=== PATIENT | male | born 1980 | race Caucasian/White ===

== ENCOUNTER 2019-08-09 22:26 | Emergency (ER) | payer SELFPAY ==
[2019-08-09] MEDS ORDERED: ACETAMINOPHEN 325 MG TABLET PO ONE (22:58)
[2019-08-09] MEDS ORDERED: HYDROMORPHONE HCL INJ/PF 2 MG/ML AMPULE IV ONE (23:14)
[2019-08-09] MEDS ORDERED: ONDANSETRON HCL INJ/PF 4 MG/2 ML SDV IV ONE (23:14)
--- NOTE | 2019-08-09 23:18 | ER Document Report ---
ED GI/ - General TRAVEL OUTSIDE OF THE [place] IN LAST 30 DAYS: No - General Chief Complaint: Penile Problem Stated Complaint: GROIN INJURY Time Seen by Provider: 08/09/19 23:08 Notes: Patient is a 38-year-old male that comes to the emergency department for chief complaint of injury to the penis. He states he was having sexual intercourse when suddenly the erect penis bent to the left in almost a 90 degree angle causing severe pain, he states he felt a pop, he states afterwards he immediately tried to compress his genitals between his legs. He states pain started increasing and he check and noticed he started bleeding from the tip of the penis for a period of time. He was able to urinate later with blood mixed in the urine. He reports swelling and pain over the right side of the shaft of the penis currently. He denies any other injuries. He denies any daily medications, surgeries, or past medical history. (YOLI YOUNG) - Related Data Allergies/Adverse Reactions: No Known Allergies Allergy (Unverified 08/09/19 22:57) Past Medical History - General Information source: Patient - Social History Smoking Status: Current Every Day Smoker Frequency of alcohol use: None Drug Abuse: None Lives with: Spouse/Significant other Family History: Reviewed & Not Pertinent Patient has suicidal ideation: No Patient has homicidal ideation: No - Medical History Medical History: Negative Surgical Hx: Negative - Immunizations Immunizations up to date: Yes Hx Diphtheria, Pertussis, Tetanus Vaccination: Yes Review of Systems - Review of Systems Constitutional: No symptoms reported EENT: No symptoms reported Cardiovascular: No symptoms reported Respiratory: No symptoms reported Gastrointestinal: No symptoms reported Genitourinary: No symptoms reported Male Genitourinary: See HPI Musculoskeletal: No symptoms reported Skin: No symptoms reported Hematologic/Lymphatic: No symptoms reported Neurological/Psychological: No symptoms reported Physical Exam - Vital signs Vitals: Temp Pulse Resp BP Pulse Ox 97.9 F 108 H 20 162/95 H 96 08/09/19 22:30 08/09/19 22:30 08/09/19 22:30 08/09/19 22:30 08/09/19 22:30 - Notes Notes: GENERAL: Alert, appears uncomfortable and in some pain HEAD: Normocephalic, atraumatic. EYES: Pupils equal, round, and reactive to light. Extraocular movements intact. ENT: Oral mucosa moist, tongue midline. Oropharynx unremarkable. Airway patent. LUNGS: Clear to auscultation bilaterally, no wheezes, rales, or rhonchi. No respiratory distress. HEART: Regular rate and rhythm. No murmur ABDOMEN: Soft, non-tender. Non-distended. Bowel sounds present in all 4 quadrants. GENITOURINARY: Normal scrotum, nontender testicles, normal cremasteric reflexes. There is tenderness and soft tissue swelling along the right midshaft, there is slight deviation of the shaft of the penis towards the left. Glans of the penis is unremarkable, there is no bloody or discolored discharge. Normal groin exam. Unremarkable exam otherwise. Exam performed with Avani RN at bedside. EXTREMITIES: Moves all 4 extremities spontaneously. No edema, normal radial and dorsalis pedis pulses bilaterally. No cyanosis. BACK: no cervical, thoracic, lumbar midline tenderness. No saddle anesthesia, normal distal neurovascular exam. Moves all extremities in full range of motion. NEUROLOGICAL: Alert and oriented x3. Normal speech. Cranial nerves II through XII grossly intact. SKIN: Warm, dry, normal turgor. No rashes or lesions noted. (YOLI YOUNG) Course - Re-evaluation Re-evalutation: Patient was given pain management first, he was much more comfortable afterwards. He urinated just prior to arrival and was given fluids in order to provide us with another sample. He does have swelling and pain along the right shaft of the penis, remaining exam is unremarkable, no current bleeding from the meatus of the penis. I spoke with Dr. Toscano, he recommends I consult urology. We do not have urology instructional material director at this time, I will contact [facility], I discussed this with patient first. 08/10/19 23:50 I called and spoke with Dr. Diaz, urology at [facility]. Recommendation is to first obtain a retrograde urethrogram, then if possible obtain an MRI. She requests I call her back with the results. Urine is also pending. We are able to get the retrograde urethrogram, we are calling in radiology to have this performed, we will not be able to perform an MRI until this morning. Dr. Diaz called back, she states she would like to take the patient to the operating room and explore/repair the area, she recommends that we perform the retrograde urethrogram and the MRI this morning first and then transfer the patient to have the procedure performed later this morning. 08/10/19 02:38 Retrograde urethrogram is normal, urine shows small amount of blood, patient appears to be barely bleeding now. I called the transfer center and updated them, they state they will update Dr. Diaz. Patient did have to be remedicated after the test. 08/10/19 05:35 Transfer center called again, asked if there is any development, reported patient required re-medication again but his examination was unremarkable otherwise. Reported tests again. Plan is still for patient to have MRI performed and then transfer center is to be called and then patient is to be transferred, he is still supposed to be n.p.o. after midnight which he has remained, patient is still on schedule to be going to surgery with Dr. Diaz. (YOLI YOUNG) 08/10/19 8:19 Assumed care of patient from ASIF Young. Patient awaiting transfer. He is to be transferred after MRI is completed here -- the result does not have to be available. Rounded on patient. He is still having pain, will remedicate. Patient has gotten MRI --[facility] was called and transport arranged. 12:20pm: [facility] is here for patient. Rounded on patient and he is doing well. Just received dose of pain meds for transport. Updated about MRI results. He agrees with the plan for transfer. He is stable for transfer. (YEIMY SOLIS) - Vital Signs Vital signs: Temp Pulse Resp BP Pulse Ox 97.8 F 108 H 12 156/92 H 100 08/10/19 12:13 08/09/19 22:30 08/10/19 12:10 08/10/19 12:10 08/10/19 12:10 - Laboratory Laboratory results interpreted by me: 08/10/19 01:36 Urine Blood SMALL H Discharge - Discharge Clinical Impression: Penile swelling Penile fracture Qualifiers: Encounter type: initial encounter Qualified Code(s): S39.840A - Fracture of corpus cavernosum penis, initial encounter Condition: Stable Disposition: [facility]
[2019-08-09] MEDS ORDERED: NORMAL SALINE 1000 ML 1,000 ML IV ONE (23:38)
--- NOTE | 2019-08-10 01:28 | RADIOLOGY REPORT (SQ) ---
EXAM DESCRIPTION: URETHROGRAM RETROGRADE COMPLETED DATE/TIME: 08/10/2019 1:18 am REASON FOR STUDY: fractured penis, bleeding from meatus direct trauma COMPARISON: None. TECHNIQUE: Using a clean technique the patients urethra was partially canalized with a 10 fr Block c atheter. Approximately 30 ml of non ionic contrast was injected through the catheter and into the ur ethra. Multiple digital spot films were saved to PACS. RADIATION DOSE: 1 minutes 11 seconds 13 images saved to PACS. LIMITATIONS: None. FINDINGS: URETHRA: No evidence of extravasation, stricture, or obstruction. BLADDER: Incompletely evaluated. Contrast seen filling retrograde. IMPRESSION: NORMAL RETROGRADE URETHROGRAM.. COMMENT: Quality ID [id number]: Final reports for procedures using fluoroscopy that document radiation exp osure indices, or exposure time and number of fluorographic images (if radiation exposure indices are not available) TECHNICAL DOCUMENTATION: OBDULIOD ID: [id number] [employer]- All Rights Reserved Reading location - IP/workstation name: [email or web address]
[2019-08-10] MEDS ORDERED: HYDROMORPHONE HCL INJ/PF 2 MG/ML AMPULE IV ONE ×5 (01:42→11:45)
[2019-08-10 01:59] LABS: APPEARANCE,URINE CLEAR; BILIRUBIN,URINE NEGATIVE (NEGATIVE); COLOR,URINE STRAW; GLUCOSE, URINE NEGATIVE (NEGATIVE); KETONES,URINE NEGATIVE (NEGATIVE); LEUKOCYTE ESTERASE,URINE NEGATIVE (NEGATIVE); NITRITE,URINE NEGATIVE (NEGATIVE); PROTEIN,URINE NEGATIVE (NEGATIVE); URINE SPECIFIC GRAVITY 1.026; UROBILINOGEN,URINE NEGATIVE mg/dL (<2.0)
[2019-08-10] MEDS ORDERED: ONDANSETRON HCL INJ/PF 4 MG/2 ML SDV IV ONE (04:06)
--- NOTE | 2019-08-10 09:19 | RADIOLOGY REPORT (SQ) ---
EXAM DESCRIPTION: MRI PELVIS WITHOUT COMPLETED DATE/TIME: 08/10/2019 8:42 am REASON FOR STUDY: eval suspected fractured penis COMPARISON: Retrograde urethrogram TECHNIQUE: Multiplanar imaging to include fat sensitive and fluid sensitive sequences. LIMITATIONS: None. FINDINGS: Penis: No fracture. The tunica albuginea is normal. No hemorrhage with the and/or exter nal to the corpus cavernosa or corpus spongiosum. No hematoma. Testicles: Small bilateral hydroceles. No masses. Pelvic structures: There is a small signal defect in the right femoral head that is concerning for a vascular necrosis. Sciatic nerves intact. No pelvic soft tissue masses. IMPRESSION: No evidence for penile fracture. 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 TECHNICAL DOCUMENTATION: JOB ID: [id number]- All Rights Reserved Reading location - IP/workstation name: [email or web address]
[2019-08-10 12:16] VITALS: BP 156/92
== END 2019-08-10 12:29 | disposition short-term general hospital (02) ==
LOC: ER 22:26
DX: S39.840A Fracture of corpus cavernosum penis, initial encounter (principal); R22.2 Localized swelling, mass and lump, trunk; X58.XXXA Exposure to other specified factors, initial encounter; F17.200 Nicotine dependence, unspecified, uncomplicated
CPT/HCPCS: 96376; 99284; 96361; 96374; 96375; 81001; 72195; 74450; J1170 ×2; J2405 ×2; J7030

== ENCOUNTER 2020-01-05 09:46 | Emergency (ER) | payer SELFPAY ==
[2020-01-05] MEDS ORDERED: ASPIRIN 81 MG TABLET, CHEWABLE PO ONE (10:12)
[2020-01-05] MEDS ORDERED: NITROGLYCERIN 0.4 MG/TAB 25 TAB/BOTTLE SL PRN (10:13)
--- NOTE | 2020-01-05 10:14 | ER Document Report ---
ED General - General Stated Complaint: CHEST PAIN Time Seen by Provider: 01/05/20 10:02 Primary Care Provider: PHILIPPE BOYD MD [ACTIVE PROVISIONAL STAFF] - Follow up as needed Mode of Arrival: Medic Information source: Patient Notes: 39-year-old male presents to the emergency department with a history of substernal chest pain. States that the pain began this morning substernal and he had a simple syncopal episode, lasting for approximately 2 minutes. He continued to have discomfort in the chest area. No radiation of pain. He also noted diffuse sweating when he came around. He has a history of hypertension, denies diabetes, he smokes approximately half a cigarette pack of cigarettes a day. TRAVEL OUTSIDE OF THE [place] IN LAST 30 DAYS: No - Related Data Allergies/Adverse Reactions: No Known Allergies Allergy (Unverified 08/09/19 22:57) Past Medical History - Social History Smoking Status: Unknown if Ever Smoked Family History: Reviewed & Not Pertinent - Immunizations Immunizations up to date: Yes Hx Diphtheria, Pertussis, Tetanus Vaccination: Yes Review of Systems - Review of Systems Notes: Constitutional: + Headache weakness HENT: Negative for sore throat. Eyes: Negative for visual changes. Cardiovascular: +chest pain. Respiratory: Negative for shortness of breath. Gastrointestinal: Negative for abdominal pain, vomiting or diarrhea. Genitourinary: Negative for dysuria. Musculoskeletal: Negative for back pain. Skin: Negative for rash. Neurological: Negative for headaches, weakness or numbness. 10 point ROS negative except as marked above and in HPI. Physical Exam - Vital signs Vitals: Resp Pulse Ox 10 L 95 01/05/20 09:58 01/05/20 09:58 - Notes Notes: PHYSICAL EXAMINATION: Physical Exam: General: Well-nourished well-developed 39-year-old male in no acute distress HEENT: NC/AT, pupils equal round and reactive to light, MM moist,nares clear, oropharynx clear, airway patent Neck: supple, no adenopathy, no masses. Good range of motion Lungs: clear, no wheezing, no rales no rhonchi CVS: Tachycardia rate and rhythm no murmur gallop or rub Abdomen: Soft, active, nontender, no masses, no hepatosplenomegaly Ext: No edema, clubbing or cyanosis. Neuro: Alert and responsive, moving all 4 extremities on command, cranial nerves intact, no focal findings Skin: Intact no open lesions, no rash PSYCH: Normal mood, normal affect. Course - Re-evaluation Re-evalutation: 01/05/20 14:21 Is given IV fluids normal saline bolus, heart rate has improved. Urine drug screen is positive for methamphetamine. I discussed this finding with the patient and explained that his substance use may explain his symptom complex. - Vital Signs Vital signs: Temp Pulse Resp BP Pulse Ox 98.1 F 11 L 148/94 H 95 01/05/20 14:46 01/05/20 14:01 01/05/20 14:01 01/05/20 14:01 - Laboratory Result Diagrams: 01/05/20 09:15 01/05/20 09:15 Laboratory results interpreted by me: 01/05/20 01/05/20 01/05/20 09:15 09:15 12:12 WBC 11.3 H RBC 5.61 H Hgb 17.5 H Sodium 136.1 L Creatinine 1.27 H Creatine Kinase 401 H Total Protein 8.5 H Albumin 5.4 H Urine Ketones TRACE H Urine Blood SMALL H - Diagnostic Test Radiology reviewed: Image reviewed, Reports reviewed - Chest x-ray: No acute cardiopulmonary findings CT head noncontrast: No acute intracranial findings. - EKG Interpretation by Me EKG shows normal: Sinus rhythm - No hyperacute ST or T wave abnormalities noted. Discharge - Discharge Clinical Impression: Chest pain Qualifiers: Chest pain type: unspecified Qualified Code(s): R07.9 - Chest pain, unspecified Syncope Qualifiers: Syncope type: unspecified Qualified Code(s): R55 - Syncope and collapse Condition: Good Disposition: HOME, SELF-CARE Instructions: Chest Pain of Unclear Cause ([facility]) Additional Instructions: You are seen in the emergency department today with an episode of chest pain and a episode of passing out. Urine report was positive for amphetamine, I am giving you the name of a poultry feed supervisor Dr. Boyd, call his office and schedule a follow-up for stress testing and evaluation of your chest pain episode. If you have further difficulties or worsening symptoms you may return to the emergency department for further evaluation and treatment. HOME CARE INSTRUCTIONS & INFORMATION: Thank you for choosing us for your medical needs. We hope you're satisfied with the care you received. After you leave, you must properly care for your problem and, at the same time, observe its progress. Any condition can change. Some illnesses can change rapidly over hours or days. If your condition worsens, return to the Emergency Department or see your physician promptly. ABOUT YOUR X-RAYS AND EKG'S: If you had an EKG or X-rays taken, they have been read by the Emergency Physician. The X-rays and EKG's will also be read by a Radiologist or Brilliandeer Lopper within 24 hours. If discrepancies are noted, you will be notified by telephone. Please be certain the ED has a correct telephone number & address where you can be reached. Also, realize that some fractures or abnormalities do not show up on initial X-rays. If your symptoms continue, see your physician. ABOUT YOUR LABORATORY TEST: If you had laboratory tests, the results have been reviewed by the Emergency Physician. Some test results (for example cultures) may not be available for several days. You will be contacted if any test result shows you need additional treatment. Please be certain the ED has a correct telephone number and address where you can be reached. ABOUT YOUR MEDICATIONS: You will receive instructions on how to take your medicine on the prescription label you receive. Additional information may be provided by the Pharmacy. If you have questions afterwards, call the ED for clarification or further instructions. Some prescribed medications may cause drowsiness. Do not perform tasks such as driving a car or operating machinery without consulting your Pharmacist. If you feel you need a refill of pain medication, your condition will need re-evaluation. Please do not call for a refill of any medication. ABOUT YOUR SIGNATURE: Signature of this document acknowledges to followin. Understanding that you received emergency treatment and that you may be released before al medical problems are known or treated. Please be certain the ED has a correct phone number & address where you can be reached. 2. Acknowledgement that you will arrange for follow-up care as recommended. 3. Authorization for the Emergency Physician to provide information to your follow-up Physician in order to maximize your care. AT ANY TIME, IF YOUR SYMPTOMS CHANGE SIGNIFICANTLY OR WORSEN OR YOU DEVELOP NEW SYMPTOMS, RETURN TO THE EMERGENCY DEPARTMENT IMMEDIATELY FOR RE-EVALUATION. OUR GOAL IS TO PROVIDE EXCELLENT MEDICAL CARE! WE HOPE THAT WE HAVE MET YOUR EXPECTATIONS DURING YOUR EMERGENCY DEPARTMENT VISIT AND THAT YOU FEEL YOU HAVE RECEIVED EXCELLENT CARE! Referrals: PHILIPPE BOYD MD [ACTIVE PROVISIONAL STAFF] - Follow up as needed
[2020-01-05 10:27] LABS: ABSOLUTE EOSINOPHILS # (AUTO) 0.1 10^3/uL (0.0-0.6); ABSOLUTE LYMPHOCYTES (AUTO) 2.8 10^3/uL (0.5-4.7); ABSOLUTE MONOCYTES (AUTO) 1.1 10^3/uL (0.1-1.4); ABSOLUTE NEUT (AUTO) 7.2 10^3/uL (1.7-8.2); BASOPHILS % (AUTO) 0.4 % (0-2); EOSINOPHILS % (AUTO) 0.8 % (0-6); HEMATOCRIT 50.7 % (37.9-51.0); HEMOGLOBIN 17.5 g/dL (13.5-17.0); LYMPHOCYTES % (AUTO) 25.1 % (13-45); MEAN CORPUSCULAR HEMOGLOBIN 31.2 pg (27.0-33.4); MEAN CORPUSCULAR HGB CONC 34.5 g/dL (32.0-36.0); MEAN CORPUSCULAR VOLUME 90 fl (80-97); PLATELET COUNT 315 10^3/uL (150-450); RED BLOOD COUNT 5.61 10^6/uL (4.35-5.55); RED CELL DISTRIBUTION WIDTH 13.9 % (11.5-14.0); SEGMENTED NEUTROPHILS % (AUTO) 63.7 % (42-78); TOTAL CELLS COUNTED % (AUTO) 100 %; WHITE BLOOD COUNT 11.3 10^3/uL (4.0-10.5)
[2020-01-05] MEDS ORDERED: ONDANSETRON HCL INJ/PF 4 MG/2 ML SDV ONE (10:41)
[2020-01-05 10:48] LABS: BLOOD UREA NITROGEN 16 mg/dL (7-20); CALCIUM 10.2 mg/dL (8.4-10.2); GLUCOSE 96 mg/dL (75-110)
[2020-01-05 10:49] LABS: ALBUMIN 5.4 g/dL (3.5-5.0); ALKALINE PHOSPHATASE 84 U/L (38-126); ANION GAP 12 (5-19); ASPARTATE AMINO TRANSFERASE 27 U/L (17-59); BILIRUBIN,TOTAL 0.9 mg/dL (0.2-1.3); CARBON DIOXIDE 23 mmol/L (22-30); CHLORIDE 101 mmol/L (98-107); CREATINE KINASE 401 U/L (55-170); POTASSIUM 4.7 mmol/L (3.6-5.0); TOTAL PROTEIN 8.5 g/dL (6.3-8.2)
[2020-01-05] MEDS ORDERED: ONDANSETRON HCL INJ/PF 4 MG/2 ML SDV IV ONE (10:51)
[2020-01-05] MEDS ORDERED: NORMAL SALINE 1000 ML 1,000 ML IV ONE ×2 (10:51→10:53)
--- NOTE | 2020-01-05 10:54 | RADIOLOGY REPORT (SQ) ---
EXAM DESCRIPTION: CHEST SINGLE VIEW IMAGES COMPLETED DATE/TIME: 01/05/2020 10:43 am REASON FOR STUDY: Chest pain COMPARISON: None. EXAM PARAMETERS: NUMBER OF VIEWS: One view. TECHNIQUE: Single frontal radiographic view of the chest acquired. RADIATION DOSE: NA LIMITATIONS: None. FINDINGS: LUNGS AND PLEURA: No opacities, masses or pneumothorax. No pleural effusion. MEDIASTINUM AND HILAR STRUCTURES: No masses. Contour normal. HEART AND VASCULAR STRUCTURES: Heart normal in size. Normal vasculature. BONES: No acute findings. HARDWARE: None in the chest. OTHER: No other significant finding. IMPRESSION: NO ACUTE RADIOGRAPHIC FINDING IN THE CHEST. TECHNICAL DOCUMENTATION: JOB ID: [id number] 2010 [employer]- All Rights Reserved Reading location - IP/workstation name: [email or web address]
[2020-01-05 11:00] LABS: CREATINE KINASE MB 1.84 ng/mL (<4.55)
[2020-01-05 11:01] LABS: TROPONIN I < 0.012 ng/mL
--- NOTE | 2020-01-05 11:45 | RADIOLOGY REPORT (SQ) ---
EXAM DESCRIPTION: CT HEAD WITHOUT IMAGES COMPLETED DATE/TIME: 01/05/2020 11:18 am REASON FOR STUDY: headache COMPARISON: None. TECHNIQUE: Axial images acquired through the brain without intravenous contrast. Images reviewed wi th bone, brain and subdural windows. Additional sagittal and coronal reconstructions were generated. Images stored on PACS. All CT scanners at this facility use dose modulation, iterative reconstruction, and/or weight based d osing when appropriate to reduce radiation dose to as low as reasonably achievable (ALARA). [facility]: Dose Right [facility]: CareDose [facility]: Dose Right [facility]: Teradose 4D [facility]: Grivy RADIATION DOSE: CT Rad equipment meets quality standard of care and radiation dose reduction techniq ues were employed. CTDIvol: 53.2 mGy. DLP: 1044 mGy-cm. mGy. LIMITATIONS: None. FINDINGS: VENTRICLES: Normal size and contour. CEREBRUM: No masses. No hemorrhage. No midline shift. No evidence for acute infarction. Normal gra y/white matter differentiation. No areas of low density in the white matter. CEREBELLUM: No masses. No hemorrhage. No alteration of density. No evidence for acute infarction. EXTRAAXIAL SPACES: No fluid collections. No masses. ORBITS AND GLOBE: No intra- or extraconal masses. Normal contour of globe without masses. CALVARIUM: No fracture. PARANASAL SINUSES: No fluid or mucosal thickening. SOFT TISSUES: No mass or hematoma. OTHER: No other significant finding. IMPRESSION: NORMAL BRAIN CT WITHOUT CONTRAST. EVIDENCE OF ACUTE STROKE: NO. COMMENT: Quality ID # [id number]: Final reports with documentation of one or more dose reduction techniques (e.g., Automated exposure control, adjustment of the mA and/or kV according to patient size, use of iterative reconstruction technique) TECHNICAL DOCUMENTATION: JOB ID: [id number] 2010 [employer]- All Rights Reserved Reading location - IP/workstation name: [email or web address]
[2020-01-05 12:38] LABS: APPEARANCE,URINE SLIGHTLY-CLOUDY; BILIRUBIN,URINE NEGATIVE (NEGATIVE); COLOR,URINE YELLOW; GLUCOSE, URINE NEGATIVE (NEGATIVE); KETONES,URINE TRACE mg/dL (NEGATIVE); PROTEIN,URINE NEGATIVE (NEGATIVE); URINE SPECIFIC GRAVITY 1.013; UROBILINOGEN,URINE NEGATIVE mg/dL (<2.0)
[2020-01-05 13:00] LABS: URINE BARBITURATES SCREEN NEGATIVE; URINE BENZODIAZEPINES SCREEN NEGATIVE; URINE COCAINE SCREEN NEGATIVE; URINE MARIJUANA (THC) SCREEN NEGATIVE; URINE METHADONE SCREEN NEGATIVE; URINE PHENCYCLIDINE SCREEN NEGATIVE
--- NOTE | 2020-01-05 14:08 | EKG REPORT ---
SEVERITY:- ABNORMAL ECG - ECTOPIC ATRIAL RHYTHM ST ELEV, PROBABLE NORMAL EARLY REPOL PATTERN : Confirmed by: Marina Lyle MD 05-Jan-2020 14:08:12
[2020-01-05 14:19] VITALS: BP 148/94
== END 2020-01-05 14:46 | disposition home or self-care (01) ==
LOC: ER 09:46
DX: R07.9 Chest pain, unspecified (principal); R55 Syncope and collapse; I10 Essential (primary) hypertension; F17.210 Nicotine dependence, cigarettes, uncomplicated
CPT/HCPCS: 93005; 99285; 96361; 96374; 36415; 82553; 82550; 85025; 80053; 81001; 84484; 80307; 83880; 71045; 70450; 93010; J2405; J7030